=== PATIENT | female | born 1970 | race American Indian/Alaskan Native ===

== ENCOUNTER 2021-01-30 00:36 | Emergency (ER) | payer MEDICARE, SELFPAY ==
--- NOTE | 2021-01-30 07:46 | Emergency Department Report ---
Minor Respiratory - HPI Chief Complaint: Upper Respiratory Infection Stated Complaint: FLU LIKE SYMPTOMS Time Seen by Provider: 01/30/21 07:24 Duration: 3 Days Pain Location: Chest Severity: mild Minor Respiratory: Yes Able to Tolerate Fluids, No Rhinorrhea, No Sore Throat, No Ear Pain, No Cough, No Sick Contacts, No Hemoptysis, No Chest Pain, No Shortness of Breath, No Fever Other History: Patient is a 50-year-old -[place] female that received her first Covid injection on January 22. However, she had a family gathering after that. Several of the people at that gathering have come down positive for COVID. The patient is here to make sure that she does not have Covid. Patient denies fever or chills. She denies chest pain or shortness of breath. ED Review of Systems ROS: Stated complaint: FLU LIKE SYMPTOMS Other details as noted in HPI Comment: All other systems reviewed and negative ED Past Medical Hx - Past Medical History Previous Medical History?: Yes Hx Hypertension: Yes Hx Congestive Heart Failure: Yes Hx Diabetes: Yes Hx Arthritis: Yes - Surgical History Past Surgical History?: Yes Additional Surgical History: Tonsillectomy, Right Ankle - Family History Family history: no significant - Social History Smoking Status: Never Smoker Substance Use Type: None - Medications Home Medications: Home Medications Medication Instructions Recorded Confirmed Last Taken Type Azithromycin [Zithromax Z-JUAN] 250 mg PO DAILY #6 tablet 01/30/21 Unknown Rx Minor Respiratory Exam - Exam General: Vital signs noted. No distress. Alert and acting appropriately. HEENT: Yes Moist Mucous Membranes, No Pharyngeal Erythema, No Pharyngeal Exudates, No Rhinorrhea, No Conjuctival Injection, No Frontal Tenderness, No Maxillary Tenderness Ear: Neither TM Bulge, Neither TM Erythema, Neither EAC Pain, Neither EAC Discharge Neck: Yes Supple, No Adenopathy Lungs: Yes Good Air Exchange, No Wheezes, No Ronchi, No Stridor, No Cough, No Labored Respirations, No Retractions, No Use of Accessory Muscles, No Other Abnormal Lung Sounds Heart: Yes Regular, No Murmur Abdomen: Yes Normal Bowel Sounds, No Tenderness, No Peritoneal Signs Skin: No Rash, No Edema Neurologic: Alert and oriented, no deficits. Musculoskeletal: Unremarkable. ED Course Vital Signs 01/30/21 02:27 Temperature 99.5 F Pulse Rate 94 H Respiratory 18 Rate Blood Pressure 166/117 [Right] O2 Sat by Pulse 94 Oximetry - Reevaluation(s) Reevaluation #1: 01/30/21 08:33 talking in full sentences sats 99-100 on room air ED Medical Decision Making - Radiology Data Radiology results: report reviewed, image reviewed see report - Medical Decision Making Vital Signs 01/30/21 01/30/21 02:27 09:08 Temperature 99.5 F 99.0 F Pulse Rate 94 H 89 Respiratory 18 18 Rate Blood Pressure 166/117 163/108 [Right] O2 Sat by Pulse 94 95 Oximetry X-ray noted. Patient has acute on chronic hypertension. She states she is just upset about this, but thus her blood pressure has been high today. She also states that anytime she goes to the doctors that it is elevated. Patient has no chest pain shortness of breath or headache. I have explained to the patient the findings of her chest x-ray. I have also explained to her that we can definitively not say that she does not have COVID- 19. I have encouraged her that if she is not concerned she could get a swab at a urgent care. However, I told her that given her HPI that she needs to quarantine and refrain from being around elders, children or immune compromised persons. Given patient's comorbid states am discharging her on a azithromycin for her URI. I told her that if this is in fact COVID that the Azo throat will likely not make her feel better that this is a time-limited disease. We have talked about signs and symptoms that she should monitor for that would prompt a return to the emergency room. I have told her to discuss with her PCP when she can get her second immunization given the possible Covid infection. Patient verbalizes understanding of discharge plan of care. She knows that she should continue to take her home medications and monitor her blood sugars. I told her stick with her diabetic diet to stay well-hydrated. We have discussed symptom control. - Differential Diagnosis ro [email or web address] Critical care attestation.: If time is entered above; I have spent that time in minutes in the direct care of this critically ill patient, excluding procedure time. ED Disposition Clinical Impression: URI (upper respiratory infection), Chronic hypertension, Person under investigation for COVID-19 Disposition: DC-01 TO HOME OR SELFCARE Is pt being admited?: No Does the pt Need Aspirin: No Condition: Stable Instructions: Viral Respiratory Infection, [id number], Hypertension (ED) Additional Instructions: HYDRATE WELL WITH WATER MOTRIN OR TYLENOL FOR PAIN OR FEVER IF YOU GET FEVER OVER 101.5 THAT DOES NOT COME DOWN WITH TYLENOL OR MOTRIN RET URN TO PCP OR ER OR IF YOU GET SEVERE SOB WITH ACTIVITY OR AT REST- RETURN TO ER SELF QUARENTEEN WE DISCUSSED OVER THE COUNTER SIGN AND SYMPTOM RELIEF AZITHRO DISCUSSED TODAY YOUR BP WAS ELEVATED TODAY MONITOR YOUR BLOOD PRESSURE DIABETIC DIET KEEP BLOOD SUGARS CONTROLLED THESE THINGS MAKE YOU HIGHER RISK CONSULT YOUR PCP TO WHEN YOU CAN GET YOUR 2ND VACCINATION Prescriptions: Azithromycin [Zithromax Z-JUAN] 250 mg PO DAILY #6 tablet Referrals: BASILIA FERNANDEZ MD [Staff Physician] - 3-5 Days Time of Disposition: 07:58
[2021-01-30] MEDS ORDERED: IBUPROFEN 800 MG TAB PO ONE (07:57)
--- NOTE | 2021-01-30 08:11 | XRay Report ---
CHEST 1 VIEW INDICATION: Shortness of breath. COMPARISON: None FINDINGS: Support devices: None. Heart: Within normal limits. Lungs/Pleura: There are focal airspace opacities in the right infrahilar region and lingula. No conso lidation, pleural effusion or pneumothorax. Additional findings: None. IMPRESSION: Mild subtle airspace opacities are identified in the lower lung zones. This could represent atelecta tic changes although atypical pneumonia or viral infection is not excluded. Please correlate with the patient. Signer Name: Maurice Menendez Jr, MD Signed: 01/30/2021 8:07 AM Workstation Name: [id number]
[2021-01-30 09:11] VITALS: BP 163/108
== END 2021-01-30 09:11 | disposition home or self-care (01) ==
LOC: ED 00:36
DX: J06.9 Acute upper respiratory infection, unspecified (principal); I11.0 Hypertensive heart disease with heart failure; I50.9 Heart failure, unspecified; E11.9 Type 2 diabetes mellitus without complications; M19.90 Unspecified osteoarthritis, unspecified site; Z20.822 Contact with and (suspected) exposure to COVID-19; Z98.890 Other specified postprocedural states; Z90.49 Acquired absence of other specified parts of digestive tract; Z88.8 Allergy status to other drugs, medicaments and biological substances; Z88.0 Allergy status to penicillin; Z79.899 Other long term (current) drug therapy
CPT/HCPCS: 71045